=== PATIENT | female | born 1955 | race Native Hawaiian/Other Pacific Islander ===

== ENCOUNTER 2019-02-06 11:25 | Outpatient (CLI) | payer OTHER | END 2019-02-06 12:05 | disposition short-term general hospital (02) | LOC: AMB 11:25 | DX: M54.5 Low back pain (principal) | CPT/HCPCS: A0425; A0429 ==

== ENCOUNTER 2019-10-02 11:52 | Emergency (ER) | payer OTHER ==
[~2019-10-02] VITALS: Ht 165.1 cm; Wt 68.0 kg
[2019-10-02 11:53] VITALS: TEMP 98.7
[2019-10-02 13:34] VITALS: BP 112/58
== END 2019-10-02 13:34 | disposition home or self-care (01) ==
LOC: ED 11:52
DX: M54.5 Low back pain (principal); Z98.890 Other specified postprocedural states
CPT/HCPCS: 96372; 99283; J1885